=== PATIENT | female | born 1960 | race African-American/Black ===

== ENCOUNTER 2018-07-12 12:15 | Emergency (ER) | payer OTHER ==
[~2018-07-12] VITALS: Ht 160 cm; Wt 85.9 kg
[2018-07-12 12:42] VITALS: TEMP 98.5
[2018-07-12 15:49] VITALS: BP 170/102; PULSE 79
== END 2018-07-12 15:49 | disposition home or self-care (01) ==
LOC: COL.ER 12:15
DX: J06.9 Acute upper respiratory infection, unspecified (principal); I10 Essential (primary) hypertension; E78.5 Hyperlipidemia, unspecified; Z88.0 Allergy status to penicillin

== ENCOUNTER 2018-08-04 10:36 | Emergency (ER) | payer OTHER ==
[~2018-08-04] VITALS: Ht 160 cm; Wt 85.9 kg
[2018-08-04 10:38] VITALS: TEMP 98.6
[2018-08-04 11:16] LABS: BASO % 0.5 % (0.0-2.0); EOS % 0.5 % (0-4.0); GRAN # 2.1 (1.4-6.5); GRAN % 54.5 % (42.2-75.2); HEMOGLOBIN 13.3 g/dl (12.5-16.0); LYMPH # 1.4 (1.2-3.4); LYMPH % 36.7 % (20.0-51.0); MEAN CELL VOLUME 86 fl (80.0-100.0); MEAN CORPUSCULAR HEMOGLOBIN 27 pg (27.0-31.0); MEAN CORPUSCULAR HGB CONC 32 g/dl (33.0-37.0); MEAN PLATELET VOLUME 9.1 fl (7.4-10.4); MONO # 0.3 (0.1-0.6); MONO % 7.5 % (1.7-9.3); PLATELET COUNT 267 K/mm3 (130-400); RED BLOOD COUNT 4.89 M/mm3 (4.10-5.30); REDCELL DISTRIBUTION WIDTH-CV 14.1 % (11.5-14.5)
[2018-08-04] MEDS ORDERED: LIPITOR20 MG PO (11:16)
[2018-08-04] MEDS ORDERED: ZESTRIL 10MG10 MG PO (11:16)
[2018-08-04 11:31] LABS: ALANINE AMINOTRANSFERASE 14 U/L (9-52); ALBUMIN 4.4 gm/dL (3.5-5.0); ALKALINE PHOSPHATASE 135 U/L (50-136); ANION GAP 9 mmol/L (7-16); AST,SGOT 30 U/L (15-37); BILIRUBIN,TOTAL 0.3 mg/dL (0.0-1.0); BLOOD UREA NITROGEN 13 mg/dL (7-17); CALCIUM 9.3 mg/dL (8.4-10.2); CARBON DIOXIDE 26 mmol/L (22-30); CHLORIDE 107 mmol/L (98-107); CREATININE, serum 0.67 (0.52-1.25); GLUCOSE 116 mg/dL (74-106); POTASSIUM 3.9 mmol/L (3.4-5.0); SODIUM 143 mmol/L (137-145); TOTAL PROTEIN 8.2 gm/dL (6.4-8.2)
[2018-08-04 11:42] LABS: TROPONIN-I < 0.012 ng/mL (0.000-0.035)
[2018-08-04] MEDS ORDERED: ANTIVERT 25MG25 MG PO (11:43)
[2018-08-04 12:00] LABS: TSH w REFLEX 0.917 uIU/mL (0.465-4.680)
[2018-08-04 13:29] VITALS: BP 129/88; PULSE 76
== END 2018-08-04 13:39 | disposition home or self-care (01) ==
LOC: COL.ER 10:36
PROVIDERS: Emergency Medicine
DX: R42 Dizziness and giddiness (principal); E78.5 Hyperlipidemia, unspecified; I10 Essential (primary) hypertension; Z90.710 Acquired absence of both cervix and uterus
CPT/HCPCS: J2060; J2405; J7030